=== PATIENT | male | born 1990 | race Caucasian/White ===

== ENCOUNTER 2025-05-23 17:25 | Emergency (ER) | payer OTHER, SELFPAY ==
[2025-05-23 17:42] VITALS: BP 122/82; PULSE 78; RESP 20; TEMP 36.7; O2SAT 97
--- NOTE | 2025-05-23 19:29 | PD.EDWOUND ---
ED Wound/Laceration-RME/HPI General Chief Complaint: Wound/Laceration Stated Complaint: LAC R) 5TH FINGER Time Seen by Provider: 05/23/25 18:21 Arrival date/time: 05/23/25 17:25 This is a case of 35-year-old male with no medical history came into the emergency room due to lacerated wound on the fifth finger right hand 1 hour prior to arrival in the emergency room patient was working and accidentally cut by a metal object sustaining 2 cm laceration on the fifth digit right hand patient tetanus shot is not up-to-date Limitations: no limitations Related Data Previous Rx's ?Medication ?Instructions ?Recorded pantoprazole 40 mg tablet,delayed 40 mg PO QDAY #30 tabs 10/28/22 release (Protonix) cephalexin 500 mg capsule 500 mg PO Q12H #20 caps 05/23/25 mupirocin 2 % topical ointment 1 applic topical BID #22 grams 05/23/25 Allergies Allergy/AdvReac Type Severity Reaction Status Date / Time Sulfa (Sulfonamide Allergy Severe Hives Verified 05/23/25 17:28 Antibiotics) BEE STINGS Allergy Severe SWELLING Uncoded 05/23/25 17:28 AT SITE Review of Systems Review of Systems Systems Reviewed: All systems reviewed, normal except as documented Constitutional Constitutional: Reports system reviewed and no additional complaints, except as documented and Reports as per HPI Cardiovascular Cardiovascular: Reports system reviewed and no additional complaints, except as documented and Reports as per HPI Respiratory Respiratory: Reports system reviewed and no additional complaints, except as documented and Reports as per HPI Gastrointestinal Gastrointestinal: Reports system reviewed and no additional complaints, except as documented and Reports as per HPI Genitourinary Genitourinary: Reports system reviewed and no additional complaints, except as documented and Reports as per HPI Musculoskeletal Musculoskeletal: Reports system reviewed and no additional complaints, except as documented and Reports as per HPI Neurologic Neurologic: Reports system reviewed and no additional complaints, except as documented and Reports as per HPI Past Medical History Past Medical History NEUROLOGIC: Negative Seizures CARDIAC: Negative Congestive Heart Failure RESPIRATORY: Negative Chronic Obstructive Pulmonary Disease (COPD) GENITOURINARY: Negative Renal Disease ENDOCRINE: Negative Diabetes Mellitus Type 1 or Diabetes Mellitus Type 2 PSYCHO/SOCIAL: Positive Depression (diagnosed 10 years ago not on meds for past 8years) OTHER HISTORY: Negative Blood Transfusions Social History SMOKING STATUS: Never smoker ED Exam General Limitations: Present no limitations General appearance: Present alert, in no apparent distress and other (Patient is awake alert playful interactive with examiner well-hydrated well-nourished not in distress nontoxic looking) Head Head exam: Present atraumatic, normocephalic and normal inspection Eye Eye exam: Present normal appearance, PERRL and EOMI ENT ENT exam: Present normal exam, normal oropharynx and mucous membranes moist Neck Neck exam: Present normal inspection, full ROM and trachea midline Chest Chest inspection: Present normal inspection and symmetric chest wall rise; Absent tenderness Respiratory Respiratory exam: Present normal lung sounds bilaterally; Absent respiratory distress, wheezes, stridor, accessory muscle use or prolonged expiratory phase Cardiovascular Cardiovascular exam: Present regular rate, normal rhythm and normal heart sounds; Absent bradycardia, tachycardia, irregular rhythm, systolic murmur or diastolic murmur Abdominal Exam Abdominal exam: Present soft and normal bowel sounds Extremities Exam Extremities exam: Present normal inspection and full ROM Back Exam Back exam: Present normal inspection and full ROM Neurological Exam Neurological exam: Present alert, oriented X3, CN II-XII intact, normal gait and reflexes normal; Absent motor sensory deficit Psychiatric Psychiatric exam: Present normal affect and normal mood Skin Skin exam: Present warm, dry, intact, normal color and other (Patient sustained a laceration 2 cm on the fifth digit right hand linear minimal bleeding no foreign body noted no tendon no bone injury noted no cellulitis no abscess no redness ROM intact neurovascular intact nail is intact) Course Quality Measures none Orders Category Date Time Status TET,DIP/PERT AC (Adult)-Tdap [Boostrix Adult (Tdap) Med 05/23/25 19:24 Discontinued Vacc] 0.5 ml IMI .ONCE ONE cephALEXin [Keflex] Med 05/23/25 19:24 Discontinued 500 mg PO X1 ONE Vital Signs Vital signs: Vital Signs Temperature 98.0 F 05/23/25 17:42 Pulse Rate 78 05/23/25 17:42 Respiratory Rate 20 05/23/25 17:42 Blood Pressure 122/82 05/23/25 17:42 Pulse Oximetry (%) 97 05/23/25 17:42 Oxygen Delivery Method Room Air 05/23/25 17:42 Oxygen saturation is 97% room air normal PROCEDURES: Laceration Laceration 1: Site: other (Digits right hand) Side (If applicable): right Size (cm): 2 Description: linear Depth: simple, single layer Local Anesthetic: lidocaine 1% Amount of anesthesia used (mL): 2 Pre-repair: irrigated extensively and deep structures intact Skin layer closed with: nylon Suture size (cm): 4-0 Number of sutures: 3 Technique: simple, interrupted Wound / Laceration MDM Narrative MDM Narrative:: This is a case of 35-year-old male with no medical history came into the emergency room due to lacerated wound on the fifth finger right hand 1 hour prior to arrival in the emergency room patient was working and accidentally cut by a metal object sustaining 2 cm laceration on the fifth digit right hand patient tetanus shot is not up-to-date physical examination patient is awake alert oriented not in distress nontoxic looking well-hydrated well-nourished patient sustained a 2 cm laceration on the fifth digit right hand minimal bleeding no foreign body noted no tendon no bone injury no abscess no cellulitis no redness the rest of the physical examination neurological exam is normal and unremarkable laceration repair was performed patient tolerated well the procedure bleeding controlled no complication noted procedure done via [place] protocol and via sterile technique patient will follow-up in 2 days to PCP in 2 days for for reevaluation and wound check in 10 days for removal of suture Tdap was given here in the emergency room patient was prescribed cephalexin and mupirocin to prevent infection and Motrin for pain Patient was discharged with comfortable condition walking with stable gait. Patient verbalized no further complains explained diagnosis and answered patient question. Patient is comfortable with the proposed management plan including the need to follow up with his/her primary care physician and any specialist if applicable Discussed patient for any urgent condition or worsening sx, He/She needed to go to emergency room immediately or call 911. Patient acknowledge the responsibility to follow up as instructed and to monitor her/his symptoms. For any persistence of the symptoms for more than 3-5 days return precaution advised. Discussed the result of the test and was given printed discharge instruction Patient data External records reviewed:: [facility] previous records Clinical information provided by:: patient Social determinants that could affect healthcare access:: none Patient has the following chronic illnesses:: None How is presenting disease/condition affected by chronic disease/condition?: no chronic disease Evaluation data The following diagnostics were reviewed and interpreted by me:: other (specify) Lab and/or radiology exams considered but not ordered:: None Interpretation Summary: None Medications / Prescriptions Medications or Prescriptions considered but not ordered:: Given Medication administrations:: Medication Administration History Discontinued Medications Cephalexin HCl (Cephalexin 250 Mg Capsule) 500 mg PO X1 ONE Stop: 05/23/25 19:25 Diphtheria/Tetanus/Acell Pertussis (Diphth,Pertuss(Acell),Tet Vac 0.5 Ml Syr- Adult) 0.5 ml IMi .ONCE ONE Stop: 05/23/25 19:25 Given Consultations Consultation(s) initiated? (list below): No Diagnosis Wound Differential Diagnosis: laceration Most likely diagnosis given after review of the tests above:: Finger laceration Admission Indicated Admission indicated?: not indicated Explain why admission is indicated or not indicated:: Not indicated Admission Request Was there a request for admission?: No Admission Attestation Admission request attestation: Not indicated Disposition Plan Disposition Plan: Discharge Discharge Attestation Discharge Attestation: The patient and all family members were given an opportunity to ask questions and understood the discharge instructions. Discharge instructions specifically effects, indications for sooner follow up or return to the emergency department, and the expected course of current diagnosis. Patient condition: Stable Discharge Plan Plan Patient Disposition: HOME (Self Care) Patient condition on transfer: Stable Prescriptions/Referrals Prescriptions/Med Rec: New cephalexin 500 mg capsule 500 mg PO Q12H Qty: 20 0RF mupirocin 2 % ointment 1 applic topical BID Qty: 22 0RF No Action pantoprazole [Protonix] 40 mg Tablet,Delayed Release (Dr/Ec) 40 mg PO QDAY Qty: 30 2RF Rx Instructions: TAKE ONE TABLET BY MOUTH DAILY Referrals: No Primary/Family,Physician [Primary Care Provider] - In 1 week Problem List Clinical Impression: Finger laceration Patient/Caregiver Discharge Instructions Education Materials: Suture Care, ED Laceration: All Closures Additional Instructions: Follow-up with your primary care physician in 2 days for reevaluation and wound check and removal of suture in 10 days for any worsening symptoms or any emergent concerns such as redness swelling discharge from the wound pain fever chills return to the emergency room immediately or call 911 take your medication and wound care is advised keep the wound clean and dry Print Language: Mohawk Stand Alone Forms: María Award Info., Work/School Release, Patient Portal Info Letter TAMMY/SHAY Supervising Physician TAMMY/SHAY Supervising Physician: Dr. Greenfield
[2025-05-23] MEDS: DIPHTH,PERTUSS(ACELL),TET VAC 0.5 ML SYR- ADULT IMi (19:30)
== END 2025-05-23 19:34 | disposition home or self-care (01) ==
PROVIDERS: Emergency Provider Emergency Medicine
DX: S61.216A Laceration without foreign body of right little finger without damage to nail, initial encounter (principal); W45.8XXA Other foreign body or object entering through skin, initial encounter; Y93.89 Activity, other specified; Y92.241 Library as the place of occurrence of the external cause; Y99.0 Civilian activity done for income or pay; Z23 Encounter for immunization
CPT/HCPCS: 12002; 90471; 90715; 99283; A9270